=== PATIENT | female | born 1950 | race Caucasian/White ===

== ENCOUNTER 2020-05-07 15:56 | Emergency (ER) | payer MEDICARE, OTHER ==
[~2020-05-07 15:56] MED LIST: ASPIRIN EC81 MG PO; CALCIUM 600 +1 EAC2 PO; COMPAZINE 10MG10 MG PO; DEXAMETHASONE 44 MG PO; DIPHENOXYLATE-1 EACH PO; JANUMET XR 50-1 EACH PO; KEPPRA1000 MG PO; LIPITOR80 MG PO; LOPRESSOR 25 MG25 MG PO; OMEPRAZOLE40 MG PO; PAXIL20 MG PO; PHENERGAN 25 MG25 M1 PO; ZESTRIL2.5 MG PO; ZOFRAN8 MG PO
[2020-05-07 17:35] LABS: HEMOGLOBIN 10.9 gm/dl (12.3-15.3); RED BLOOD COUNT 3.86 M/UL (4.00-5.10); WHITE BLOOD COUNT 7.8 K/UL (4.5-11.0)
[2020-05-07 18:42] LABS: BUN/CREATININE RATIO 16 (0-10)
[2020-05-07] MEDS ORDERED: KEFLEX500 MG PO (19:50)
== END 2020-05-07 22:15 | disposition home or self-care (01) ==
LOC: ER1 15:56
PROVIDERS: Emergency Medicine
DX: E83.42 Hypomagnesemia (principal); N39.0 Urinary tract infection, site not specified; Z88.0 Allergy status to penicillin; Z88.2 Allergy status to sulfonamides; Z88.5 Allergy status to narcotic agent
CPT/HCPCS: 70450; 71045; 80053; 81001; 82550; 82553; 83735; 83874; 84484; 85025; 96365; 96366; 99285; J3475

== ENCOUNTER 2020-09-20 19:00 | Emergency (ER) | payer MEDICARE, OTHER ==
[~2020-09-20 19:00] MED LIST changes: +KEFLEX500 MG PO
[2020-09-20 20:12] LABS: HEMOGLOBIN 12.7 gm/dl (12.3-15.3); RED BLOOD COUNT 4.56 M/UL (4.00-5.10); WHITE BLOOD COUNT 4.5 K/UL (4.5-11.0)
[2020-09-20 20:41] LABS: BUN/CREATININE RATIO 23 (0-10)
[2020-09-21] MEDS ORDERED: OMNICEF 300 MG300 MG PO (01:51)
== END 2020-09-21 02:00 | disposition home or self-care (01) ==
LOC: ER1 19:00
PROVIDERS: Emergency Medicine
DX: K57.32 Diverticulitis of large intestine without perforation or abscess without bleeding (principal); E86.0 Dehydration; K59.00 Constipation, unspecified; C78.00 Secondary malignant neoplasm of unspecified lung; R82.81 Pyuria; R91.1 Solitary pulmonary nodule; Z87.440 Personal history of urinary (tract) infections; Z87.891 Personal history of nicotine dependence
CPT/HCPCS: 70450; 71045; 80053; 81001; 82550; 82553; 83605; 83690; 83735; 83874; 84484; 85025; 87040; 87086; 93005; 96374; 96375; 99285; J0696; J7120; Q9967

== ENCOUNTER → 2020-10-09 | Outpatient (CLI) | payer MEDICARE, OTHER ==
[~2020-10-09] MED LIST changes: +HYDROCODON-ACE1 EAC4 PO; +OMNICEF 300 MG300 MG PO
== END ==
LOC: OPSV 12:03
DX: E86.0 Dehydration (principal)
CPT/HCPCS: 96360

== ENCOUNTER → 2020-10-14 | Outpatient (CLI) | payer MEDICARE, OTHER | LOC: OPSV 11:10 | DX: E86.0 Dehydration (principal) | CPT/HCPCS: 96360; J7030 ==

== ENCOUNTER → 2020-10-16 | Outpatient (CLI) | payer MEDICARE, OTHER | LOC: OPSV 10-14 11:00 | DX: E86.0 Dehydration (principal) | CPT/HCPCS: 96360 ==

== ENCOUNTER → 2020-11-04 | Outpatient (CLI) | payer MEDICARE, OTHER | LOC: OPSV 10:00 | DX: E86.0 Dehydration (principal) | CPT/HCPCS: 96360; J7030 ==

== ENCOUNTER 2020-11-06 17:37 | Emergency (ER) | payer MEDICARE, OTHER ==
[~2020-11-06 17:37] MED LIST changes: -HYDROCODON-ACE1 EAC4 PO
[2020-11-06] MEDS ORDERED: HYDROCODON-ACE1 EAC4 PO ×2 (18:18→18:47)
== END 2020-11-06 19:00 | disposition home or self-care (01) ==
LOC: ER1 17:37
DX: S82.031A Displaced transverse fracture of right patella, initial encounter for closed fracture (principal); I25.10 Atherosclerotic heart disease of native coronary artery without angina pectoris; E11.9 Type 2 diabetes mellitus without complications; Z85.118 Personal history of other malignant neoplasm of bronchus and lung; Z87.891 Personal history of nicotine dependence; W01.0XXA Fall on same level from slipping, tripping and stumbling without subsequent striking against object, initial encounter; Y92.009 Unspecified place in unspecified non-institutional (private) residence as the place of occurrence of the external cause; Z88.0 Allergy status to penicillin; Z88.2 Allergy status to sulfonamides; Z88.5 Allergy status to narcotic agent
CPT/HCPCS: 73564; 96360; 99283; J7030

== ENCOUNTER → 2021-02-24 | Outpatient (CLI) | payer MEDICARE, OTHER ==
[~2021-02-24] MED LIST changes: +HYDROCODON-ACE1 EAC4 PO
== END ==
LOC: RAD 10:35
DX: C34.90 Malignant neoplasm of unspecified part of unspecified bronchus or lung (principal); C79.31 Secondary malignant neoplasm of brain; J98.11 Atelectasis
CPT/HCPCS: 71046

== ENCOUNTER → 2021-11-17 | Outpatient (CLI) | payer MEDICARE, OTHER ==
[2021-11-17 10:24] LABS: HEMOGLOBIN 11.8 gm/dl (12.3-15.3); RED BLOOD COUNT 4.29 M/UL (4.00-5.10); WHITE BLOOD COUNT 9.8 K/UL (4.5-11.0)
== END ==
LOC: ECHO 09:38
PROVIDERS: Internal Medicine Cardiovascular Disease
DX: I25.10 Atherosclerotic heart disease of native coronary artery without angina pectoris (principal); I10 Essential (primary) hypertension; E11.9 Type 2 diabetes mellitus without complications; Z95.5 Presence of coronary angioplasty implant and graft
CPT/HCPCS: ECHO; 36415; 80053; 80061; 83036; 83735; 84443; 85025; 93306